=== PATIENT | female | born 1980 | race Caucasian/White ===

== ENCOUNTER 2016-12-02 12:06 | Emergency (ER) | payer OTHER ==
[~2016-12-02] VITALS: Ht 157.5 cm; Wt 56.8 kg
[~2016-12-02 12:06] MED LIST: ALBUTEROL SUL0.083 % IN; AMOXICILLIN/CL875 MG OR; AMOXICILLIN500 MG PO; AUGMENTIN875TAB OR; AUGMENTINES600 PO; CIPRO500 MG PO; CIPRODEX1 ML AD; HYDROXYZ HCL25 MG PO; MEDDOSEPAK PO; PROAIR HFA IN; ZOFRAN ODT4 MG PO
[2016-12-02] MEDS ORDERED: LEVOTHYROXIN50 MCG PO (12:16)
[2016-12-02 12:35] LABS: HEMATOCRIT 34.5 % (37.0-47.0); HEMOGLOBIN 12.8 g/dl (12.0-16.0); MEAN CELL VOLUME 85.4 fL CALC (80.0-100.0); MEAN CORPUSCULAR HGB 31.7 pG CALC (26.0-32.0); MEAN CORPUSCULAR HGB CONC 37.1 g/L CALC (32.0-36.0); NEUT# 2.04 thou/uL (2.00-7.15); RED BLOOD COUNT 4.04 mill/uL (4.20-5.60); RED CELL DISTRI WIDTH 12.4 % (11.5-15.5)
[2016-12-02 12:53] LABS: URINE BILIRUBIN - DIPSTICK NEGATIVE (NEGATIVE); URINE BLOOD DIPSTICK TRACE-LYSED (NEGATIVE); URINE COLOR YELLOW; URINE GLUCOSE - DIPSTICK NEGATIVE (NEGATIVE); URINE KETONE NEGATIVE (NEGATIVE); URINE NITRITE - DIPSTICK NEGATIVE (Negative); URINE PH 5.5 (4.5-8.0); URINE PROTEIN - DIPSTICK NEGATIVE (NEG-TRACE); URINE UROBILINOGEN - DIPSTICK 0.2 E.U./dL (0.2)
[2016-12-02 12:55] LABS: URINE CLARITY SLIGHT CLOUDY; URINE LEUK ESTERASE TRACE (NEGATIVE)
[2016-12-02 12:58] LABS: ALBUMIN 4.5 g/dL (3.2-5.0); ALKALINE PHOSPHATASE 80 u/l (38-126); AMYLASE 73 u/l (30-110); ANION GAP 14 (6-22 (CALC)); BILIRUBIN, TOTAL 0.4 mg/dL (0.0-1.4); BUN 11 mg/dL (7-17); BUN/CREATININE RATIO 14 (12-20 (CALC)); CARBON DIOXIDE 25 mmol/l (22-30); CHLORIDE 104 mmol/l (95-108); CREATININE 0.8 mg/dL (0.5-1.0); GFR > 60 ML/MIN (>=60 (CALC)); GFR FOR AFR.AMER. > 60 ML/MIN (>=60 (CALC)); GLUCOSE 84 mg/dL (65-105); LIPASE 64 u/l (23-300); POTASSIUM 3.9 mmol/l (3.5-5.1); SGOT/AST 31 u/l (14-36); SGPT/ALT 29 u/l (9-52); SODIUM 138 mmol/l (137-146); TOTAL PROTEIN 7.8 g/dL (6.3-8.2)
[2016-12-02 13:10] LABS: MYOGLOBIN 49 ng/mL (0 - 62)
[2016-12-02] MEDS ORDERED: NAPROSYN500 MG PO (14:39)
[2016-12-02 14:48] VITALS: BP 104/67
== END 2016-12-02 15:20 | disposition home or self-care (01) | DRG 313 ==
LOC: ED 12:06
PROVIDERS: Emergency Medicine
DX: R07.89 Other chest pain (principal); M34.9 Systemic sclerosis, unspecified; E03.9 Hypothyroidism, unspecified; H91.90 Unspecified hearing loss, unspecified ear; H54.40 Blindness, one eye, unspecified eye; J45.909 Unspecified asthma, uncomplicated

== ENCOUNTER 2017-03-20 11:29 | Emergency (ER) | payer OTHER ==
[~2017-03-20] VITALS: Ht 157.5 cm; Wt 50.0 kg
[~2017-03-20 11:29] MED LIST changes: +LEVOTHYROXIN50 MCG PO; +NAPROSYN500 MG PO
[2017-03-20 12:39] LABS: URINE BILIRUBIN - DIPSTICK NEGATIVE (NEGATIVE); URINE BLOOD DIPSTICK TRACE-INTACT (NEGATIVE); URINE COLOR YELLOW; URINE GLUCOSE - DIPSTICK NEGATIVE (NEGATIVE); URINE KETONE NEGATIVE (NEGATIVE); URINE NITRITE - DIPSTICK NEGATIVE (Negative); URINE PROTEIN - DIPSTICK NEGATIVE (NEG-TRACE); URINE SPECIFIC GRAVITY 1.015; URINE UROBILINOGEN - DIPSTICK 0.2 E.U./dL (0.2)
[2017-03-20 12:42] LABS: URINE CLARITY CLEAR; URINE LEUK ESTERASE TRACE (NEGATIVE)
[2017-03-20] MEDS ORDERED: FLEXERIL PO (13:34)
[2017-03-20] MEDS ORDERED: ULTRAM50 M1 PO (13:34)
[2017-03-20 13:58] VITALS: BP 113/62
== END 2017-03-20 14:00 | disposition home or self-care (01) | DRG 563 ==
LOC: ED 11:29
PROVIDERS: Emergency Medicine
DX: S39.012A Strain of muscle, fascia and tendon of lower back, initial encounter (principal); M47.816 Spondylosis without myelopathy or radiculopathy, lumbar region; X50.0XXA Overexertion from strenuous movement or load, initial encounter; Y93.E9 Activity, other interior property and clothing maintenance; Y92.009 Unspecified place in unspecified non-institutional (private) residence as the place of occurrence of the external cause

== ENCOUNTER 2017-12-20 12:52 | Emergency (ER) | payer OTHER ==
[~2017-12-20] VITALS: Ht 157.5 cm; Wt 55.9 kg
[~2017-12-20 12:52] MED LIST changes: +FLEXERIL PO; +ULTRAM50 M1 PO
[2017-12-20] MEDS ORDERED: MEDDOSEPAK PO (13:39)
[2017-12-20 14:10] LABS: URINE BILIRUBIN - DIPSTICK NEGATIVE (NEGATIVE); URINE BLOOD DIPSTICK NEGATIVE (NEGATIVE); URINE CLARITY CLEAR; URINE COLOR YELLOW; URINE GLUCOSE - DIPSTICK NEGATIVE (NEGATIVE); URINE KETONE NEGATIVE (NEGATIVE); URINE NITRITE - DIPSTICK NEGATIVE (Negative); URINE PH 5.5 (4.5-8.0); URINE PROTEIN - DIPSTICK NEGATIVE (NEG-TRACE); URINE SPECIFIC GRAVITY >=1.030; URINE UROBILINOGEN - DIPSTICK 0.2 E.U./dL (0.2)
[2017-12-20 14:11] LABS: URINE LEUK ESTERASE SMALL (NEGATIVE)
[2017-12-20 14:11] LABS: BARBITURATES POSITIVE (NEGATIVE); COCAINE NEGATIVE (NEGATIVE); METHADONE NEGATIVE (NEGATIVE); OXCYCODONE NEGATIVE (NEGATIVE); TETRAHYDROCANNABIONOL POSITIVE (NEGATIVE); TRICYLIC ANTIDEPRESSANTS NEGATIVE (NEGATIVE)
[2017-12-20 14:50] VITALS: BP 116/67
[2017-12-20 15:05] LABS: URINE SQUAMOUS EPITHELIAL CELL FEW EPI/hpf (0-FEW)
== END 2017-12-20 14:50 | disposition home or self-care (01) ==
LOC: ED 12:52
PROVIDERS: Emergency Medicine
DX: G89.29 Other chronic pain (principal); M54.5 Low back pain; M51.37 Other intervertebral disc degeneration, lumbosacral region; H91.90 Unspecified hearing loss, unspecified ear; H54.62 Unqualified visual loss, left eye, normal vision right eye; F17.210 Nicotine dependence, cigarettes, uncomplicated; Z91.14 Patient's other noncompliance with medication regimen

== ENCOUNTER 2018-10-06 15:26 | Emergency (ER) | payer OTHER ==
[~2018-10-06] VITALS: Ht 157.5 cm; Wt 60.0 kg
[2018-10-06] MEDS ORDERED: DOXYCYCL HYC100 MG PO (15:58)
[2018-10-06 16:02] VITALS: BP 109/59
== END 2018-10-06 16:09 | disposition home or self-care (01) ==
LOC: ED 15:26
DX: I88.8 Other nonspecific lymphadenitis (principal); R10.31 Right lower quadrant pain

== ENCOUNTER 2019-03-19 13:06 | Emergency (ER) | payer OTHER ==
[~2019-03-19] VITALS: Ht 157.5 cm; Wt 50.0 kg
[~2019-03-19 13:06] MED LIST changes: +DOXYCYCL HYC100 MG PO
[2019-03-19] MEDS ORDERED: TRAMADOL HYDROC50 MG PO (14:04)
[2019-03-19 14:10] VITALS: BP 106/64
== END 2019-03-19 14:10 | disposition home or self-care (01) ==
LOC: ED 13:06
DX: S43.402A Unspecified sprain of left shoulder joint, initial encounter (principal); W01.0XXA Fall on same level from slipping, tripping and stumbling without subsequent striking against object, initial encounter

== ENCOUNTER 2019-05-09 12:43 | Emergency (ER) | payer OTHER ==
[~2019-05-09] VITALS: Ht 157.5 cm; Wt 52.0 kg
[~2019-05-09 12:43] MED LIST changes: +TRAMADOL HYDROC50 MG PO
[2019-05-09 13:51] LABS: HEMATOCRIT 33.5 % (37.0-47.0); HEMOGLOBIN 12.4 g/dl (12.0-16.0); IMMATURE GRANULOCYTES 0.3 % (0.0-5.0); MEAN CORPUSCULAR HGB 31.1 pG CALC (26.0-32.0); NEUT# 2.85 thou/uL (2.00-7.15); RED BLOOD COUNT 3.99 mill/uL (4.20-5.60); RED CELL DISTRI WIDTH 11.8 % (11.5-15.5)
[2019-05-09 13:52] LABS: URINE BILIRUBIN - DIPSTICK NEGATIVE (NEGATIVE); URINE BLOOD DIPSTICK MODERATE (NEGATIVE); URINE COLOR YELLOW; URINE GLUCOSE - DIPSTICK NEGATIVE (NEGATIVE); URINE KETONE NEGATIVE (NEGATIVE); URINE NITRITE - DIPSTICK NEGATIVE (Negative); URINE PH 5.5 (4.5-8.0); URINE PROTEIN - DIPSTICK TRACE mg/dL (NEG-TRACE); URINE SPECIFIC GRAVITY 1.015; URINE UROBILINOGEN - DIPSTICK 0.2 E.U./dL (0.2)
[2019-05-09 14:01] LABS: ALBUMIN 4.7 g/dL (3.2-5.0); ALKALINE PHOSPHATASE 114 u/l (38-126); BUN 12 mg/dL (7-17); BUN/CREATININE RATIO 20 (12-20 (CALC)); CARBON DIOXIDE 25 mmol/l (22-30); CREATININE 0.6 mg/dL (0.5-1.0); GFR > 60 ML/MIN (>=60 (CALC)); GFR FOR AFR.AMER. > 60 ML/MIN (>=60 (CALC)); MAGNESIUM 1.7 mg/dL (1.6-2.3); POTASSIUM 3.7 mmol/l (3.5-5.1); SGOT/AST 46 u/l (14-36); TOTAL PROTEIN 8.1 g/dL (6.3-8.2)
[2019-05-09 14:15] LABS: ANION GAP 16 (6-22 (CALC)); BILIRUBIN, TOTAL 0.6 mg/dL (0.0-1.4); CHLORIDE 93 mmol/l (95-108); SODIUM 130 mmol/l (137-146)
[2019-05-09 14:24] LABS: URINE LEUK ESTERASE MODERATE (NEGATIVE)
[2019-05-09 14:25] LABS: URINE BACTERIA FEW hpf; URINE EPITHELIAL CELLS RARE EPI/hpf (0-FEW); URINE WBC 20-50 WBC/hpf (0-5)
[2019-05-09 14:26] LABS: BARBITURATES NEGATIVE (NEGATIVE); COCAINE NEGATIVE (NEGATIVE); METHADONE NEGATIVE (NEGATIVE); OXCYCODONE NEGATIVE (NEGATIVE); TETRAHYDROCANNABIONOL POSITIVE (NEGATIVE); TRICYLIC ANTIDEPRESSANTS NEGATIVE (NEGATIVE)
[2019-05-09 14:32] LABS: TSH, 3RD GENERATION 9.71 uIU/mL (0.47 - 4.68)
[2019-05-09] MEDS ORDERED: REGLAN10 MG PO (16:32)
[2019-05-09 16:46] VITALS: BP 95/68
== END 2019-05-09 16:51 | disposition home or self-care (01) ==
LOC: ED 12:43
DX: K52.9 Noninfective gastroenteritis and colitis, unspecified (principal)
CPT/HCPCS: Q9967

== ENCOUNTER 2019-07-02 | Emergency (ER) | payer OTHER ==
[~2019-07-02] MED LIST changes: +REGLAN10 MG PO
[2019-07-02] MEDS ORDERED: LEVOTHYROXIN50 MCG PO (20:21)
[2019-07-02] MEDS ORDERED: PROVENTIL0.083 % IN (20:21)
[2019-07-02] MEDS ORDERED: TENCON 50-325 M1 TAB PO (20:22)
[2019-07-02 21:01] LABS: HEMATOCRIT 33.6 % (37.0-47.0); HEMOGLOBIN 12.5 g/dl (12.0-16.0); IMMATURE GRANULOCYTES 0.5 % (0.0-5.0); MEAN CELL VOLUME 84.2 fL CALC (80.0-100.0); MEAN CORPUSCULAR HGB 31.3 pG CALC (26.0-32.0); MEAN CORPUSCULAR HGB CONC 37.2 g/L CALC (32.0-36.0); NEUT# 5.7 thou/uL (2.00-7.15); RED BLOOD COUNT 3.99 mill/uL (4.20-5.60); RED CELL DISTRI WIDTH 12.3 % (11.5-15.5)
[2019-07-02 21:12] LABS: ALBUMIN 4.3 g/dL (3.2-5.0); ALKALINE PHOSPHATASE 123 u/l (38-126); ANION GAP 11 (6-22 (CALC)); BUN 22 mg/dL (7-17); BUN/CREATININE RATIO 33 (12-20 (CALC)); CARBON DIOXIDE 26 mmol/l (22-30); CHLORIDE 99 mmol/l (95-108); CREATININE 0.6 mg/dL (0.5-1.0); GFR > 60 ML/MIN (>=60 (CALC)); GFR FOR AFR.AMER. > 60 ML/MIN (>=60 (CALC)); POTASSIUM 3.6 mmol/l (3.5-5.1); SGOT/AST 21 u/l (14-36); SODIUM 133 mmol/l (137-146); TOTAL PROTEIN 7.4 g/dL (6.3-8.2)
[2019-07-02 21:13] LABS: BILIRUBIN, TOTAL 0.3 mg/dL (0.0-1.4)
[2019-07-02] MEDS ORDERED: CODEINE/GUAIFEN1 SOL PO (22:46)
[2019-07-02] MEDS ORDERED: Levaquin PO (22:46)
== END 2019-07-02 23:30 | disposition home or self-care (01) ==
DX: J06.9 Acute upper respiratory infection, unspecified (principal); F17.210 Nicotine dependence, cigarettes, uncomplicated

== ENCOUNTER 2019-09-05 07:44 | Observation (INO) | payer OTHER ==
[~2019-09-05] VITALS: Ht 160 cm; Wt 54.8 kg
[~2019-09-05 07:44] MED LIST changes: +CODEINE/GUAIFEN1 SOL PO; +Levaquin PO; +PROVENTIL0.083 % IN; +TENCON 50-325 M1 TAB PO
--- NOTE | 2019-09-05 07:44 | NUR ---
pT WAS BROUGHT TO ROOM VIA WHEELCHAIR
[2019-09-05] MEDS ORDERED: TRAZODONE50 MG PO (08:15)
[2019-09-05] MEDS ORDERED: NAPROXEN500 MG PO (08:16)
[2019-09-05 08:37] LABS: HEMATOCRIT 34.4 % (37.0-47.0); HEMOGLOBIN 12.5 g/dl (12.0-16.0); MEAN CELL VOLUME 84.1 fL CALC (80.0-100.0); MEAN CORPUSCULAR HGB 30.6 pG CALC (26.0-32.0); MEAN CORPUSCULAR HGB CONC 36.3 g/dL CAL (32.0-36.0); NEUT# 2.06 thou/uL (2.00-7.15); RED BLOOD COUNT 4.09 mill/uL (4.20-5.60); RED CELL DISTRI WIDTH 12.4 % (11.5-15.5)
--- NOTE | 2019-09-05 08:44 | NUR ---
PT RESTING COMFORTBALB
[2019-09-05 08:58] LABS: ALBUMIN 4.5 g/dL (3.2-5.0); ALKALINE PHOSPHATASE 90 u/l (38-126); AMYLASE 119 u/l (30-110); ANION GAP 13 (6-22 (CALC)); BUN 13 mg/dL (7-17); BUN/CREATININE RATIO 19 (12-20 (CALC)); CARBON DIOXIDE 26 mmol/l (22-30); CHLORIDE 101 mmol/l (95-108); CREATININE 0.7 mg/dL (0.5-1.0); GFR > 60 ML/MIN (>=60 (CALC)); GFR FOR AFR.AMER. > 60 ML/MIN (>=60 (CALC)); LIPASE 148 u/l (23-300); POTASSIUM 3.8 mmol/l (3.5-5.1); SODIUM 136 mmol/l (137-146); TOTAL PROTEIN 7.9 g/dL (6.3-8.2)
[2019-09-05 09:04] LABS: BILIRUBIN, TOTAL 0.5 mg/dL (0.0-1.4); SGOT/AST 48 u/l (14-36)
[2019-09-05 09:16] LABS: BARBITURATES NEGATIVE (NEGATIVE); COCAINE NEGATIVE (NEGATIVE); METHADONE NEGATIVE (NEGATIVE); OXCYCODONE POSITIVE (NEGATIVE); TETRAHYDROCANNABIONOL POSITIVE (NEGATIVE); TRICYLIC ANTIDEPRESSANTS NEGATIVE (NEGATIVE)
[2019-09-05 09:20] LABS: URINE BILIRUBIN - DIPSTICK NEGATIVE (NEGATIVE); URINE BLOOD DIPSTICK SMALL (NEGATIVE); URINE COLOR YELLOW; URINE GLUCOSE - DIPSTICK NEGATIVE (NEGATIVE); URINE KETONE 40 mg/dL (NEGATIVE); URINE LEUK ESTERASE NEGATIVE (NEGATIVE); URINE NITRITE - DIPSTICK NEGATIVE (Negative); URINE PROTEIN - DIPSTICK NEGATIVE (NEG-TRACE); URINE SPECIFIC GRAVITY 1.025; URINE UROBILINOGEN - DIPSTICK 0.2 E.U./dL (0.2)
--- NOTE | 2019-09-05 09:41 | NUR ---
PT HAS COME BACK FROM X RAY BACK IN BED RESTING WAITING ON RESULTS
--- NOTE | 2019-09-05 10:40 | NUR ---
AT BEDSIDE MAKINGN PATIENT AWARE OF CARE. ABX STARTED
--- NOTE | 2019-09-05 11:40 | NUR ---
PT RESTING AND RECIEVING ABX
--- NOTE | 2019-09-05 12:20 | NUR ---
PT RESTING COMFORTBLY. NO DISTRSS NOTED.
--- NOTE | 2019-09-05 13:15 | NUR ---
Admission Note Report Given to: NINA SARABIA Transported by: X Wheelchair Stretcher Transported with: X Nurse Transporter X Patent IV O2 X Machine Veneer Repairer Location: ICU X [facility]
[2019-09-05 13:26] VITALS: BP 137/69
--- NOTE | 2019-09-05 14:00 | NUR ---
PT ARRIVES TO ROOM 269 ACCOMPANIED BY ER NURSES CLARISSA AND CIARAN. PT IS AWAKE, ALERT, AMBULATORY TO BED. PT ABLE TO ANSWER ALL ADMISSION QUESTIONS, DENIES SHORTNESS OF BREATH OR BACK PAIN.
[2019-09-05 15:36] VITALS: BP 120/61
--- NOTE | 2019-09-05 17:00 | NUR ---
PT REMAINS AT REST IN THE BED, PROVIDED MOM AND PERICOLACE FOR CONSTIPATION.
[2019-09-05 19:00] VITALS: BP 125/71
--- NOTE | 2019-09-05 20:05 | NUR ---
PATIENT RESTING IN BED EATING THE FOOD THAT HER S/O SEND UP. AWAKE ALERT AND ORIENTEDX3. C/O BACK PAIN-8/10 ON PAIN SCALE AND MEDICATED WITH ULTRAM 50MG PO FOR PAIN. TELE MONITOR IN PLACE. IV SITE TO LAC INTACT WITH IVF NS PATENT AND INFUSING AT 100CC/HR. SITE IS HEALTHY AT THIS TIME. PATIENT IS TALKING ON PHONE-SAFETY PRECAUTIONS REINFORCED. CALL LIGHT IN REACH, WILL CONT TO MONITOR.
--- NOTE | 2019-09-05 20:45 | NUR ---
PATIENT STATES LITTLE OR NO RELIEF FROM ULTRAM GIVEN FOR PAIN EARLIER. STATES THAT SHE DID HAVE BM. STILL ON PHONE. SAFETY PRECAUTIONS REINFORCED. CALL LIGHT IN REACH. WILL CONT TO MONITOR.
[2019-09-06 00:28] VITALS: BP 103/68
--- NOTE | 2019-09-06 00:41 | NUR ---
PATIENT RESTING IN BED AT THIS TIME-NO COMPLAINTS OR CONCERNS AT THIS TIME. TELE MONITOR IN PLACE. IVF PATENT AND INFUSING VIA LAC SITE AT 100CC/HR. SAFETY PRECAUTIONS REINFORCED. CALL LIGHT IN REACH. WILL CONT TO MONITOR.
--- NOTE | 2019-09-06 03:18 | NUR ---
PATIENT APPEARS SLEEPING POSITIONED ON RIGHT SIDE WITH EYES CLOSED. TELE MNONITOR IN PLACE. IVF PATENT AND INFUSING VIA LEFT AC SITE AT 100CC/HR. SITE IS HEALTHY. CALL LIGHT IN REACH. WILL CONT TO MONITOR.
--- NOTE | 2019-09-06 03:20 | NUR ---
APPEARS SLEEPING AT THIS TIME POSITIONED ON LEFT SIDE. RESPS ARE EVEN AND UNLABORED. VOIDING QS YELLOW URINE IN URINAL. TELE MONITOR IN PLACE. RIGHT UE ELEVATE ON PILLOW. SWELLING HAS IMPROVED TO RIGHT ARM. CALL LIGHT IN REACH. WILL CONT TO MONITOR.
[2019-09-06 04:19] VITALS: BP 110/70
[2019-09-06 07:32] VITALS: BP 109/57
[2019-09-06] MEDS ORDERED: ZITHROMAX500 MG PO (09:54)
[2019-09-06] MEDS ORDERED: TRAMADOL HCL50 MG PO (09:54)
--- NOTE | 2019-09-06 10:00 | NUR ---
PT AWAKE, ALERT, ORIENTED X 3. LUNGS CLEAR, RA. PT WITHOUT SHORTNESS OF BREATH, AMBULATES IN ROOM WITHOUT ISSUE.
[2019-09-06 11:19] VITALS: BP 133/64
--- NOTE | 2019-09-06 11:35 | NUR ---
PT HAS BEEN SEEN BY DR YOUNG THIS MORNING AND DISCHARGED TO HOME. SHE IS BEING PROVIDED IV ABX TODAY, SO SHE DOES NOT HAVE TO START PO MED UNTIL TOMORROW. PT VERBALIZES UNDERSTANDING OF DC INSTRUCTIONS. PT LEAVES [facility] IN STABLE CONDITION.
== END 2019-09-06 12:14 | disposition home or self-care (01) ==
LOC: ED 07:44 → ED-I 10:50 → ED 11:26 → ED-I 11:27 → MS2 11:38
PROVIDERS: ADMIT Internal Medicine; ATTEND Internal Medicine
DX: J18.9 Pneumonia, unspecified organism (principal); K59.00 Constipation, unspecified; M51.36 Other intervertebral disc degeneration, lumbar region; J45.909 Unspecified asthma, uncomplicated; M34.9 Systemic sclerosis, unspecified; H54.62 Unqualified visual loss, left eye, normal vision right eye; H91.93 Unspecified hearing loss, bilateral; N91.2 Amenorrhea, unspecified; R82.5 Elevated urine levels of drugs, medicaments and biological substances; F17.210 Nicotine dependence, cigarettes, uncomplicated; Z20.828 Contact with and (suspected) exposure to other viral communicable diseases
CPT/HCPCS: G0378; J1650; Q9967

== ENCOUNTER 2021-04-08 12:15 | Emergency (ER) | payer OTHER ==
[~2021-04-08] VITALS: Ht 160 cm; Wt 50.0 kg
[~2021-04-08 12:15] MED LIST changes: +NAPROXEN500 MG PO; +TRAMADOL HCL50 MG PO; +TRAZODONE50 MG PO; +ZITHROMAX500 MG PO
[2021-04-08 13:26] LABS: HEMOGLOBIN 13.4 g/dl (12.0-16.0); IMMATURE GRANULOCYTES 0.1 % (0.0-5.0); MEAN CELL VOLUME 87.6 fL CALC (80.0-100.0); MEAN CORPUSCULAR HGB 30.9 pG CALC (26.0-32.0); MEAN CORPUSCULAR HGB CONC 35.3 g/dL CAL (32.0-36.0); NEUT# 4.32 thou/uL (2.00-7.15); RED BLOOD COUNT 4.34 mill/uL (4.20-5.60); RED CELL DISTRI WIDTH 11.8 % (11.5-15.5)
[2021-04-08 13:48] LABS: HCG SERUM/URINE (NEG/POS) NEGATIVE (NEGATIVE)
[2021-04-08 13:53] LABS: ALBUMIN 4.8 g/dL (3.2-5.0); ALKALINE PHOSPHATASE 134 u/l (38-126); ANION GAP 13 (6-22 (CALC)); BILIRUBIN, TOTAL 0.7 mg/dL (0.0-1.4); BUN 12 mg/dL (7-17); BUN/CREATININE RATIO 17 (12-20 (CALC)); CARBON DIOXIDE 28 mmol/l (22-30); CHLORIDE 101 mmol/l (95-108); CREATININE 0.7 mg/dL (0.5-1.0); GFR > 60 ML/MIN (>=60 (CALC)); GFR FOR AFR.AMER. > 60 ML/MIN (>=60 (CALC)); POTASSIUM 3.6 mmol/l (3.5-5.1); SGOT/AST 46 u/l (14-36); SODIUM 138 mmol/l (137-146); TOTAL PROTEIN 8.5 g/dL (6.3-8.2)
[2021-04-08] MEDS ORDERED: DOXYCYC MONO100 M2 PO (15:38)
[2021-04-08 15:43] VITALS: BP 120/72
== END 2021-04-08 15:48 | disposition home or self-care (01) ==
LOC: ED 12:15
PROVIDERS: Family Medicine
DX: J06.9 Acute upper respiratory infection, unspecified (principal); M51.36 Other intervertebral disc degeneration, lumbar region; H54.62 Unqualified visual loss, left eye, normal vision right eye; H91.92 Unspecified hearing loss, left ear; F17.200 Nicotine dependence, unspecified, uncomplicated; Z20.822 Contact with and (suspected) exposure to COVID-19
CPT/HCPCS: Q9967

== ENCOUNTER 2021-10-30 12:04 | Emergency (ER) | payer OTHER ==
[~2021-10-30] VITALS: Ht 160 cm; Wt 50.0 kg
[2021-10-30] VITALS (8 sets, daily range): BP systolic 108–128; BP diastolic 45–72
[~2021-10-30 12:04] MED LIST changes: +DOXYCYC MONO100 M2 PO
[2021-10-30 14:37] LABS: URINE BILIRUBIN - DIPSTICK NEGATIVE (NEGATIVE); URINE BLOOD DIPSTICK SMALL (NEGATIVE); URINE COLOR YELLOW; URINE GLUCOSE - DIPSTICK NEGATIVE (NEGATIVE); URINE KETONE NEGATIVE (NEGATIVE); URINE LEUK ESTERASE NEGATIVE (NEGATIVE); URINE PROTEIN - DIPSTICK NEGATIVE (NEG-TRACE); URINE UROBILINOGEN - DIPSTICK 0.2 E.U./dL (0.2)
[2021-10-30 14:38] LABS: URINE NITRITE - DIPSTICK NEGATIVE (Negative)
[2021-10-30 14:49] LABS: URINE RBC 0-2 RBC/hpf (0-5)
[2021-10-30] MEDS ORDERED: METHOCARBAMOL500 MG PO (15:53)
[2021-10-30] MEDS ORDERED: NAPROXEN500 MG PO (15:53)
== END 2021-10-30 16:07 | disposition home or self-care (01) ==
LOC: ED 12:04
PROVIDERS: Nurse Practitioner
DX: M54.50 Low back pain, unspecified (principal); M25.551 Pain in right hip; M51.36 Other intervertebral disc degeneration, lumbar region; H54.62 Unqualified visual loss, left eye, normal vision right eye; H91.90 Unspecified hearing loss, unspecified ear; F17.200 Nicotine dependence, unspecified, uncomplicated; W10.9XXA Fall (on) (from) unspecified stairs and steps, initial encounter; Y92.009 Unspecified place in unspecified non-institutional (private) residence as the place of occurrence of the external cause

== ENCOUNTER 2022-05-17 18:39 | Emergency (ER) | payer OTHER ==
[2022-05-17] VITALS (8 sets, daily range): BP systolic 51–113; BP diastolic 36–72
[~2022-05-17] VITALS: Ht 160 cm; Wt 50.0 kg
[~2022-05-17 18:39] MED LIST changes: +METHOCARBAMOL500 MG PO
[2022-05-17 20:33] LABS: BASO% 0.4 % (0-3); EOS% 3.5 % (0-8); HEMATOCRIT 34.9 % (37.0-47.0); IMMATURE GRANULOCYTES 0.1 % (0.0-5.0); MEAN CELL VOLUME 87.3 fL CALC (80.0-100.0); MEAN CORPUSCULAR HGB 32.5 pG CALC (26.0-32.0); MEAN CORPUSCULAR HGB CONC 37.2 g/dL CAL (32.0-36.0); MONO% 8.4 % (2-13); NEUT# 2.98 thou/uL (2.00-7.15); NEUT% 41.6 % (42-76); RED CELL DISTRI WIDTH 12.3 % (11.5-15.5)
== END 2022-05-17 22:05 | disposition home or self-care (01) ==
LOC: ED 18:39
PROVIDERS: Family Medicine
DX: J06.9 Acute upper respiratory infection, unspecified (principal); F17.200 Nicotine dependence, unspecified, uncomplicated; Z20.822 Contact with and (suspected) exposure to COVID-19

== ENCOUNTER 2022-07-28 11:40 | Observation (INO) | payer OTHER ==
[2022-07-28] VITALS (36 sets, daily range): BP systolic 69–116; BP diastolic 27–78
[~2022-07-28] VITALS: Ht 160 cm; Wt 53.0 kg
[2022-07-28 12:38] LABS: BASO% 0.3 % (0-3); EOS% 1.7 % (0-8); HEMOGLOBIN 14.6 g/dl (12.0-16.0); IMMATURE GRANULOCYTES 0.3 % (0.0-5.0); LYMPH% 13.8 % (15-41); MEAN CELL VOLUME 86.3 fL CALC (80.0-100.0); MEAN CORPUSCULAR HGB 30.7 pG CALC (26.0-32.0); MEAN CORPUSCULAR HGB CONC 35.6 g/dL CAL (32.0-36.0); MONO% 10.9 % (2-13); NEUT# 5.29 thou/uL (2.00-7.15); RED BLOOD COUNT 4.75 mill/uL (4.20-5.60); RED CELL DISTRI WIDTH 12.4 % (11.5-15.5)
[2022-07-28 12:53] LABS: ALBUMIN 4.8 g/dL (3.2-5.0); ALKALINE PHOSPHATASE 75 u/l (38-126); ANION GAP 15 (6-22 (CALC)); BILIRUBIN, TOTAL 0.9 mg/dL (0.02-1.3); BUN 19 mg/dL (7-17); BUN/CREATININE RATIO 18 (12-20 (CALC)); CARBON DIOXIDE 28 mmol/l (22-30); CHLORIDE 95 mmol/l (95-108); GFR FOR AFR.AMER. > 60 ML/MIN (>=60 (CALC)); GFR OTHER RACES > 60 ML/MIN (>=60 (CALC)); LIPASE 42 u/l (23-300); POTASSIUM 3.8 mmol/l (3.5-5.1); SGOT/AST 37 u/l (14-36); SODIUM 134 mmol/l (137-146); TOTAL PROTEIN 7.7 g/dL (6.3-8.2)
[2022-07-28 15:34] LABS: URINE BILIRUBIN - DIPSTICK NEGATIVE (NEGATIVE); URINE BLOOD DIPSTICK TRACE-INTACT (NEGATIVE); URINE COLOR YELLOW; URINE GLUCOSE - DIPSTICK NEGATIVE (NEGATIVE); URINE KETONE NEGATIVE (NEGATIVE); URINE LEUK ESTERASE NEGATIVE (NEGATIVE); URINE PROTEIN - DIPSTICK NEGATIVE (NEG-TRACE); URINE UROBILINOGEN - DIPSTICK 0.2 E.U./dL (0.2)
[2022-07-28 15:35] LABS: URINE NITRITE - DIPSTICK NEGATIVE (Negative)
[2022-07-29 03:21] VITALS: BP 83/32
[2022-07-29 04:24] VITALS: BP 86/40
[2022-07-29 05:43] VITALS: BP 94/52
[2022-07-29 05:48] LABS: MEAN CELL VOLUME 89.5 fL CALC (80.0-100.0); MEAN CORPUSCULAR HGB 31.3 pG CALC (26.0-32.0); RED BLOOD COUNT 3.13 mill/uL (4.20-5.60); RED CELL DISTRI WIDTH 12.9 % (11.5-15.5)
[2022-07-29 05:55] LABS: ALKALINE PHOSPHATASE 44 u/l (38-126); BUN 12 mg/dL (7-17); BUN/CREATININE RATIO 13 (12-20 (CALC)); CARBON DIOXIDE 23 mmol/l (22-30); CREATININE 0.9 mg/dL (0.5-1.0); GFR FOR AFR.AMER. > 60 ML/MIN (>=60 (CALC)); GFR OTHER RACES > 60 ML/MIN (>=60 (CALC)); POTASSIUM 3.9 mmol/l (3.5-5.1); SGOT/AST 29 u/l (14-36); SODIUM 135 mmol/l (137-146)
[2022-07-29 05:57] LABS: HEMOGLOBIN 9.8 g/dl (12.0-16.0)
[2022-07-29 06:07] LABS: ALBUMIN 3.2 g/dL (3.2-5.0); ANION GAP 8 (6-22 (CALC)); BILIRUBIN, TOTAL 0.3 mg/dL (0.02-1.3); CHLORIDE 108 mmol/l (95-108); MAGNESIUM 2.2 mg/dL (1.6-2.3); TOTAL PROTEIN 5.6 g/dL (6.3-8.2)
[2022-07-29 12:15] LABS: HEMATOCRIT 30.5 % (37.0-47.0); HEMOGLOBIN 10.5 g/dl (12.0-16.0)
[2022-07-29 13:14] VITALS: BP 125/45
[2022-07-29 14:15] VITALS: BP 125/45
[2022-07-29 18:08] VITALS: BP 91/56
[2022-07-29 18:37] LABS: HEMATOCRIT 28.6 % (37.0-47.0); HEMOGLOBIN 9.9 g/dl (12.0-16.0)
[2022-07-30 00:42] LABS: HEMATOCRIT 28.3 % (37.0-47.0)
[2022-07-30 03:40] VITALS: BP 114/56
[2022-07-30 06:20] VITALS: BP 110/45
[2022-07-30 07:32] LABS: BASO% 0.3 % (0-3); EOS% 9.5 % (0-8); HEMATOCRIT 31.5 % (37.0-47.0); HEMOGLOBIN 11.1 g/dl (12.0-16.0); LYMPH% 29.3 % (15-41); MEAN CELL VOLUME 88.5 fL CALC (80.0-100.0); MEAN CORPUSCULAR HGB 31.2 pG CALC (26.0-32.0); MEAN CORPUSCULAR HGB CONC 35.2 g/dL CAL (32.0-36.0); MONO% 11.9 % (2-13); NEUT# 1.81 thou/uL (2.00-7.15); RED BLOOD COUNT 3.56 mill/uL (4.20-5.60); RED CELL DISTRI WIDTH 12.8 % (11.5-15.5)
[2022-07-30 07:53] LABS: ANION GAP 13 (6-22 (CALC)); BUN 8 mg/dL (7-17); BUN/CREATININE RATIO 11 (12-20 (CALC)); CARBON DIOXIDE 22 mmol/l (22-30); CHLORIDE 107 mmol/l (95-108); CREATININE 0.7 mg/dL (0.5-1.0); GFR FOR AFR.AMER. > 60 ML/MIN (>=60 (CALC)); GFR OTHER RACES > 60 ML/MIN (>=60 (CALC)); POTASSIUM 4.1 mmol/l (3.5-5.1); SGOT/AST 40 u/l (14-36); SODIUM 138 mmol/l (137-146); TOTAL PROTEIN 6.3 g/dL (6.3-8.2)
[2022-07-30 08:11] LABS: ALBUMIN 3.9 g/dL (3.2-5.0); ALKALINE PHOSPHATASE 94 u/l (38-126); BILIRUBIN, TOTAL 0.6 mg/dL (0.02-1.3)
[2022-07-30 10:13] VITALS: BP 117/52
[2022-07-30 10:28] VITALS: BP 146/50
== END 2022-07-30 13:07 | disposition home or self-care (01) ==
LOC: ED 11:40 → ED-I 17:42 → ED 17:51 → MS2 17:52
PROVIDERS: Nurse Practitioner; Nurse Practitioner Family; ADMIT Internal Medicine; ATTEND Internal Medicine
DX: A08.11 Acute gastroenteropathy due to Norwalk agent (principal); D64.9 Anemia, unspecified; J45.909 Unspecified asthma, uncomplicated; M34.9 Systemic sclerosis, unspecified; M54.50 Low back pain, unspecified; G89.29 Other chronic pain; H54.62 Unqualified visual loss, left eye, normal vision right eye; H91.90 Unspecified hearing loss, unspecified ear; F17.200 Nicotine dependence, unspecified, uncomplicated; Z20.822 Contact with and (suspected) exposure to COVID-19
CPT/HCPCS: G0378; J1650; Q9967; S0164

== ENCOUNTER 2022-09-10 08:34 | Emergency (ER) | payer OTHER ==
[~2022-09-10] VITALS: Ht 160 cm; Wt 53.0 kg
[2022-09-10 08:41] VITALS: BP 135/66
[2022-09-10 09:00] VITALS: BP 125/63
[2022-09-10 09:28] VITALS: BP 92/56
[2022-09-10 09:31] VITALS: BP 142/65
[2022-09-10 10:01] VITALS: BP 110/64
[2022-09-10] MEDS ORDERED: IBUPROFEN600 MG PO (10:51)
[2022-09-10] MEDS ORDERED: DECADRON4 MG PO (10:51)
[2022-09-10] MEDS ORDERED: FLEXERIL5 M1 PO (10:51)
[2022-09-10] MEDS ORDERED: VOLTAREN1%GEL TOP (10:51)
[2022-09-10 11:00] VITALS: BP 118/69
== END 2022-09-10 11:13 | disposition home or self-care (01) ==
LOC: ED 08:34
DX: S06.0X0A Concussion without loss of consciousness, initial encounter (principal); M54.50 Low back pain, unspecified; G89.29 Other chronic pain; F17.200 Nicotine dependence, unspecified, uncomplicated; W01.198A Fall on same level from slipping, tripping and stumbling with subsequent striking against other object, initial encounter; Y92.009 Unspecified place in unspecified non-institutional (private) residence as the place of occurrence of the external cause

== ENCOUNTER 2024-07-08 13:00 | Emergency (ER) | payer OTHER ==
[2024-07-08] VITALS (10 sets, daily range): BP systolic 90–121; BP diastolic 47–68
[~2024-07-08] VITALS: Ht 160 cm; Wt 49.8 kg
[~2024-07-08 13:00] MED LIST changes: +AMOX/K CLAV875 M1 PO; +AMOXICILLIN500 M2 PO; +DECADRON4 MG PO; +DILAUDID2 MG PO; +FLEXERIL5 M1 PO; +IBUPROFEN600 MG PO; +VOLTAREN1%GEL TOP
[2024-07-08] MEDS ORDERED: SODIUM CHLORIDE 0.9% 1,000 ML IV ONE (14:05)
[2024-07-08] MEDS ORDERED: ONDANSETRON HCl 4 MG/2 ML SDV IV ONE (14:05)
[2024-07-08] MEDS ORDERED: MORPHINE SULFATE 4 MG/ML VIAL IV ONE (14:05)
[2024-07-08 14:19] LABS: URINE BILIRUBIN - DIPSTICK Negative (NEGATIVE); URINE BLOOD DIPSTICK Small (NEGATIVE); URINE GLUCOSE - DIPSTICK Negative (NEGATIVE); URINE KETONE Negative (NEGATIVE); URINE PH 5.5 (4.5-8.0); URINE PROTEIN - DIPSTICK 30 mg/dL (NEG-TRACE); URINE UROBILINOGEN - DIPSTICK 0.2 E.U./dL (0.2)
[2024-07-08 14:20] LABS: URINE BACTERIA MANY hpf; URINE COLOR Yellow; URINE EPITHELIAL CELLS MODERATE EPI/hpf (0-FEW); URINE LEUK ESTERASE Moderate (NEGATIVE); URINE NITRITE - DIPSTICK Positive (Negative); URINE WBC 20-50 WBC/hpf (0-5)
[2024-07-08 15:02] LABS: BASO% 0.5 % (0-3); EOS% 1.4 % (0-8); HEMOGLOBIN 11.6 g/dl (12.0-16.0); LYMPH% 44.3 % (15-41); MEAN CELL VOLUME 88.7 fL CALC (80.0-100.0); MEAN CORPUSCULAR HGB 31.2 pG CALC (26.0-32.0); MEAN CORPUSCULAR HGB CONC 35.2 g/dL CAL (32.0-36.0); MONO% 8.1 % (2-13); NEUT# 2.99 thou/uL (2.00-7.15); NEUT% 45.7 % (42-76); RED BLOOD COUNT 3.72 mill/uL (4.20-5.60); RED CELL DISTRI WIDTH 12.6 % (11.5-15.5)
[2024-07-08 15:19] LABS: ALBUMIN 4.2 g/dL (3.2-5.0); BILIRUBIN, TOTAL 0.5 mg/dL (0.02-1.3); CREATININE 0.8 mg/dL (0.5-1.0); POTASSIUM 3.6 mmol/l (3.5-5.1); TOTAL PROTEIN 7.1 g/dL (6.3-8.2)
[2024-07-08] MEDS ORDERED: KEFLEX500 MG PO (16:31)
[2024-07-10] MEDS ORDERED: MACROBID100 M1 PO (14:27)
--- NOTE | 2024-07-10 14:27 | NUR ---
Urine culture results show E.coli resistant to cefazolin. Patient had been discharged home with prescription for cephalexin 500 mg po tid x 4 days. Contacted patient. New prescription for Macrobid 100 mg po bid x 7 days sent to [facility] per Dr Ann.
== END 2024-07-08 17:20 | disposition home or self-care (01) ==
LOC: ED 13:00
PROVIDERS: Family Medicine
DX: N39.0 Urinary tract infection, site not specified (principal); F17.200 Nicotine dependence, unspecified, uncomplicated
CPT/HCPCS: J0696; J2405; Q9967

== ENCOUNTER 2024-07-14 07:20 | Emergency (ER) | payer OTHER ==
[~2024-07-14] VITALS: Ht 160 cm; Wt 48.6 kg
[2024-07-14] VITALS (7 sets, daily range): BP systolic 107–133; BP diastolic 54–73
[~2024-07-14 07:20] MED LIST changes: +KEFLEX500 MG PO; +MACROBID100 M1 PO
[2024-07-14] MEDS ORDERED: SODIUM CHLORIDE 0.9% 500 ML IV ONE (08:10)
[2024-07-14] MEDS ORDERED: traMADol HCL 50 MG/TAB PO ONE (08:10)
[2024-07-14] MEDS ORDERED: ONDANSETRON HCl 4 MG/2 ML SDV IV ONE (08:10)
[2024-07-14 08:12] LABS: URINE BILIRUBIN - DIPSTICK Negative (NEGATIVE); URINE BLOOD DIPSTICK Small (NEGATIVE); URINE CLARITY Clear; URINE GLUCOSE - DIPSTICK Negative (NEGATIVE); URINE KETONE 80 mg/dL (NEGATIVE); URINE LEUK ESTERASE Negative (Negative); URINE NITRITE - DIPSTICK Negative (Negative); URINE PH 5.5 (4.5-8.0); URINE PROTEIN - DIPSTICK Negative (NEG-TRACE); URINE SPECIFIC GRAVITY 1.015; URINE UROBILINOGEN - DIPSTICK 0.2 E.U./dL (0.2)
[2024-07-14 08:23] LABS: URINE COLOR Yellow
[2024-07-14 08:25] LABS: BASO% 0.5 % (0-3); HEMATOCRIT 37.4 % (37.0-47.0); IMMATURE GRANULOCYTES 0.2 % (0.0-5.0); LYMPH% 42.7 % (15-41); MEAN CELL VOLUME 86.4 fL CALC (80.0-100.0); MEAN CORPUSCULAR HGB 31.4 pG CALC (26.0-32.0); MEAN CORPUSCULAR HGB CONC 36.4 g/dL CAL (32.0-36.0); MONO% 9.1 % (2-13); NEUT# 2.75 thou/uL (2.00-7.15); NEUT% 45.5 % (42-76); RED BLOOD COUNT 4.33 mill/uL (4.20-5.60); RED CELL DISTRI WIDTH 12.5 % (11.5-15.5)
[2024-07-14 08:27] LABS: HEMOGLOBIN 13.6 g/dl (12.0-16.0)
[2024-07-14 08:29] LABS: URINE SQUAMOUS EPITHELIAL CELL FEW EPI/hpf (0-FEW); URINE WBC 0-2 WBC/hpf (0-5)
[2024-07-14 08:56] LABS: BILIRUBIN, TOTAL 0.7 mg/dL (0.02-1.3); CREATININE 0.8 mg/dL (0.5-1.0); TOTAL PROTEIN 8.4 g/dL (6.3-8.2)
[2024-07-14 08:59] LABS: ALBUMIN 5.1 g/dL (3.2-5.0); POTASSIUM 4.5 mmol/l (3.5-5.1)
[2024-07-14] MEDS ORDERED: diazePAM 10 MG/2 ML VIAL IV ONE (09:15)
[2024-07-14] MEDS ORDERED: MEDDOSEPAK PO (10:01)
[2024-07-14] MEDS ORDERED: ORPHENADRINE100 MG PO (10:01)
== END 2024-07-14 10:11 | disposition home or self-care (01) ==
LOC: ED 07:20
PROVIDERS: Emergency Medicine
DX: R10.11 Right upper quadrant pain (principal); L53.9 Erythematous condition, unspecified; Z72.0 Tobacco use
CPT/HCPCS: J1100; J2405; J3360